=== PATIENT | female | born 1945 | race Caucasian/White ===

== ENCOUNTER 2018-10-05 17:01 | Inpatient (IN) ==
[2018-10-05] MEDS ORDERED: CARDIZEM IV ONE (18:03)
--- NOTE | 2018-10-05 18:20 | Diag Imaging Result Doc PS360 ---
EXAM: CHEST-2 VIEWS INDICATION: heart palpitation TECHNIQUE: 2 views COMPARISON: 02/07/2016 FINDINGS: There is stable mild elevation of the right hemidiaphragm. There is evidence of prior granulomatous disease, stable. The lungs are grossly clear. There is no discrete pleural fluid collection or pneumothorax. The cardiomediastinal silhouette and central vasculature are grossly unremarkable. There is thoracic spondylosis that is essentially stable. There are metallic clips projecting over the right chest wall. IMPRESSION: No evidence of acute pathology by plain radiograph. Electronically signed by Francisco Jurado 10/05/2018 6:17 PM
[2018-10-05 18:23] LABS: BASO# 0.09 X1000 (0.0-0.2); EOS# 0.58 X1000 (0.0-0.7); EOS% 6.6 % (0.0-10.0); HEMOGLOBIN 13.8 g/dL (12.0-16.0); IMM GRAN# 0.02 X1000 (0.0-0.04); IMM GRAN% 0.2 % (0.0-0.5); LYMPH# 3.08 X1000 (1.2-3.4); LYMPH% 35.2 % (20.5-51.1); MCH 29.5 PG (27-31); MCHC 33.7 g/dL (33-37); MCV 87.6 FL (81-99); MONO# 0.58 X1000 (0.11-0.59); MONO% 6.6 % (1.7-9.3); MPV 10.9 FL (7.4-10.4); NEUT# 4.39 X1000 (1.4-6.5); NEUT% 50.4 % (42.2-75.2); PLT 210 X1000 (130-400); RBC 4.68 XMIL (4.2-5.4); RDW 13.6 % (11.5-14.5); WBC 8.74 X1000 (4.8-10.8)
[2018-10-05 18:27] LABS: INR 0.91; PTT 29.7 Seconds (22.3-41.8)
[2018-10-05 18:47] LABS: ALBUMIN 4.5 g/dL (3.5-5.0); CALCIUM 9.8 mg/dL (8.8-10.2); CREATININE 1.2 mg/dL (0.5-0.9); POTASSIUM 3.6 mmol/L (3.5-5.1); TOTAL BILIRUBIN 0.28 mg/dL (0.20-1.00); TOTAL PROTEIN 6.8 g/dL (6.3-8.3)
[2018-10-05] MEDS: CARDIZEM 125 MG/D5W 125 MG/125 ML IVPB IV SCH ×2 (19:08→20:46)
--- NOTE | 2018-10-05 19:09 | PROVIDER DOCUMENTATION ---
This chart was entered by Maru Louis Scribe, acting as scribe for Audrey Patel MD. HPI-Cardiac General - General Chief Complaint: Palpitations Stated Complaint: HR UP/DIZZY Time Seen by Provider: 10/05/18 17:42 Source: patient, family (sisters) Allergies/Adverse Reactions: Patient Allergies Allergy/AdvReac Type Severity Reaction Status Date / Time No Known Allergies Allergy Verified 06/20/17 12:35 Home Medications: Home Medication List Medication Instructions Recorded Confirmed Last Taken Type Aspirin 81 mg PO DAILY 06/20/17 10/05/18 06/20/17 History BENAZEpril [Lotensin] 20 mg PO DAILY 06/20/17 10/05/18 06/27/17 History Colchicine [Colcrys] 0.6 mg PO PRN PRN 06/20/17 10/05/18 Unknown History Diclofenac Sodium 2 tab PO DAILY PRN 06/20/17 10/05/18 06/20/17 History Magnesium Oxide [Magnesium] 400 mg PO DAILY 06/20/17 10/05/18 06/27/17 History Calcium Carbonate [Caltrate 600] 2 tab PO DAILY 10/05/18 10/05/18 Unknown Hi story Choleste Rice 2 tab PO DAILY 10/05/18 10/05/18 Unknown History Denosumab [Prolia] 1 dose SUBQ DIRECTED 10/05/18 10/05/18 Unknown History Joseph Red 800 mg PO DAILY 10/05/18 10/05/18 Unknown History Omeprazole/Sodium Bicarbonate 20 mg PO DAILY 10/05/18 10/05/18 Unknown History [Zegerid 20 mg] - History of Present Illness-Cardiac Nature of Presenting Problem: 73 yowf presents to the ed with c/o new onset afib with dizziness and nausea. pt sts acute onset at 1600 while working in her mothers (mother 2 months prior) carlos. sister that is a nurse was with pt and advised pt to come to ed due to irregular HR. pt checked vitals with onset and got a BP 105/55 HR 156. on exam nausea has resolved and pt still has HR 168 and BP has improved at 138/95 Location: reports: other (denies pain just palpitations) Severity in ED: moderate Onset/Duration: this afternoon (1600) Timing: still present, constant Context/Activities at Onset: reports: moderate activity, recent emotional stress (mother passed 2 months prior) Modifying Factors: improves with: nothing Palpitation Quality: irregular History of arrythmia: reports: none Recent use of:: reports: caffeine Nitro Today/Relief: reports: no nitro taken today Aspirin Treatment Today: reports: no aspirin today Prior Chest Pain/Cardiac Workup: reports: no prior cardiac workup Associated Symptoms: reports: dizziness, nausea. denies: abdominal pain, back pain, diaphoresis, fatigue, fever/chills, headache, heartburn, shortness of breath, vomiting Similar Symptoms Previously?: No Recently Seen Here or By Another Healthcare Provider: No Review of Systems - Adult - REVIEW OF SYSTEMS - ADULT Constitutional: denies: chills, fever Eyes: reports: no symptoms reported Ears, Nose, Mouth & Throat: reports: no symptoms reported Cardiovascular: reports: irregular heart rate, palpitations. denies: chest pain, syncope Respiratory: denies: cough, shortness of breath, wheezing Gastrointestinal: reports: nausea. denies: abdominal pain, diarrhea, vomiting Genitourinary: reports: no symptoms reported Musculoskeletal: denies: back pain, neck pain Integumentary: reports: no symptoms reported Neurological: reports: see HPI, dizziness/vertigo. denies: headache/migraines, loss of balance, numbness, paresthesia, seizure, slurred speech, syncope, tremors Psychiatric: reports: no symptoms reported Endocrine: reports: no symptoms reported Hematologic/Lymphatic: reports: no symptoms reported Allergic/Immunologic: reports: no symptoms reported All Other Systems: Reviewed and Negative Past History - Adult - PAST MEDICAL HISTORY-ADULT Review of Records: reports: Nursing Assessment Review, Medications Reviewed Major Childhood Illnesses: reports: denies history Cardiovascular: reports: HTN, hyperlipidemia Respiratory: reports: denies history Gastrointestinal: reports: GERD Obstetrical/Gynecological: reports: denies history Genitourinary: reports: kidney stones Musculoskeletal: reports: chronic pain, orthopedic injury, osteoporosis Hand Dominance: Right Handed Neurological: reports: denies history Endocrine/Immune: reports: denies history Other Conditions: reports: other cancer (breast) - PRIOR SURGERIES/PROCEDURES Surgical/Procedure History: reports: appendectomy, hysterectomy, tonsillectomy, breast, back/neck - IMMUNIZATION STATUS Childhood Immunizations: See Nurse Assessment Flu Vaccine: See Nurse Assessment - FAMILY HISTORY Family History: reviewed, not pertinent - SOCIAL HISTORY Smoking: non-smoker Substance Use: alcohol Alcohol Use Frequency: occasionally Number of drinks per typical drinking period:: 2 drinks Living Situation: family Physical Exam-General - PHYSICAL EXAM-ADULT Initial Vital Signs Reviewed: Yes - CONSTITUTIONAL General Appearance: appears well, alert, no apparent distress, obese - EYES Eyes: PERRL/EOMI, pink conjunctivae - HEAD, EARS, NOSE, MOUTH & THROAT HENMT: normocephalic/atraumatic, moist mucous membranes, normal ENT inspection - NECK Neck: non-tender, full range of motion, supple, normal inspection - RESPIRATORY Respiratory: chest non-tender, lungs clear, normal breath sounds - CARDIOVASCULAR Cardiovascular: normal peripheral pulses, irregularly irregular - GASTROINTESTINAL (ABDOMEN) Abdominal Exam: normal bowel sounds, non tender, soft, no organomegaly, no pulsatile mass - LYMPHATIC Lymphatic: no adenopathy - MUSCULOSKELETAL Back Exam: normal inspection, no CVA tenderness, no vertebral tenderness Extremity: normal range of motion, non-tender, normal gait, normal inspection, no pedal edema, no calf tenderness, normal capillary refill, pelvis stable - SKIN Integumentary: normal color, normal turgor, warm/dry - NEUROLOGIC Neurologic: grossly normal, no motor/sensory deficits - PSYCHIATRIC Psych/Mental Status: normal mood/affect, normal thought content, normal thought process, oriented x 3 - HEART Score HEART Score: History: Slightly Suspicious HEART Score: ECG: Non-Specific Repolarization Disturbance/LBBB/PM HEART Score: Age: > or = 65 Years HEART Score: Risk Factors for Atherosclerotic Disease: 1 or 2 Risk Factors HEART Score: Troponin: < or = Normal Limit Total HEART Score:: 4 Progress - PLAN OF CARE/RESULTS Progress/Plan/Lab Results: Vital Signs - 8 hr 10/05/18 17:15 Temperature 97.2 F L Pulse Rate 158 H Respiratory Rate 18 Blood Pressure 172/81 O2 Sat by Pulse Oximetry 97 Laboratory Results - last 24 hr 10/05/18 10/05/18 10/05/18 17:48 17:48 17:48 WBC 8.74 RBC 4.68 Hgb 13.8 Hct 41.0 MCV 87.6 MCH 29.5 MCHC 33.7 RDW Std Deviation 13.6 Plt Count 210 MPV 10.9 H Immature Gran % (Auto) 0.2 Neut % (Auto) 50.4 Lymph % (Auto) 35.2 [place] % (Auto) 6.6 Eos % (Auto) 6.6 Baso % (Auto) 1.0 H Immature Gran # (Auto) 0.02 Neut # (Auto) 4.39 Lymph # (Auto) 3.08 [place] # (Auto) 0.58 Eos # (Auto) 0.58 Baso # (Auto) 0.09 PT INR PTT (Actin FS) Sodium 138 Potassium 3.6 Chloride 104 Carbon Dioxide 22 L Anion Gap 12 BUN 23 H Creatinine 1.2 H Estimated GFR/1.73 m2 44 BUN/Creatinine Ratio 19 Glucose 141 H Calculated Osmolality 282 Calcium 9.8 Total Bilirubin 0.28 AST 21 ALT 20 Alkaline Phosphatase 80 Creatine Kinase 95 Troponin T Total Protein 6.8 Albumin 4.5 Globulin 2.3 Albumin/Globulin Ratio 2.0 TSH 3.25 10/05/18 10/05/18 17:48 17:48 WBC RBC Hgb Hct MCV MCH MCHC RDW Std Deviation Plt Count MPV Immature Gran % (Auto) Neut % (Auto) Lymph % (Auto) [place] % (Auto) Eos % (Auto) Baso % (Auto) Immature Gran # (Auto) Neut # (Auto) Lymph # (Auto) [place] # (Auto) Eos # (Auto) Baso # (Auto) PT 13.0 INR 0.91 PTT (Actin FS) 29.7 Sodium Potassium Chloride Carbon Dioxide Anion Gap BUN Creatinine Estimated GFR/1.73 m2 BUN/Creatinine Ratio Glucose Calculated Osmolality Calcium Total Bilirubin AST ALT Alkaline Phosphatase Creatine Kinase Troponin T < 0.010 Total Protein Albumin Globulin Albumin/Globulin Ratio TSH Orders Category Date Time Status Cardiac Monitoring DIRECTED Care 10/05/18 18:03 Active Oxygen Therapy- ED Nursing DIRECTED Care 10/05/18 18:03 Active Saline Loc NOW Care 10/05/18 18:03 Active CHEST-2 VIEWS [RAD] Stat Exams 10/05/18 18:03 Completed CBC WITH DIFF [HEME] Stat Lab 10/05/18 17:48 Completed CK PROFILE [SP CHEM] Stat Lab 10/05/18 17:48 Completed COMPREHENSIVE METABOLIC PANEL [CHEM] Stat Lab 10/05/18 17:48 Completed PRO B-NATRIURETIC PEPTIDE Stat Lab 10/05/18 17:48 Received PROTIME WITH INR [COAG] Stat Lab 10/05/18 17:48 Completed PTT [COAG] Stat Lab 10/05/18 17:48 Completed TROPONIN T Stat Lab 10/05/18 17:48 Completed TSH Stat Lab 10/05/18 17:48 Completed Diltiazem 125 mg/D5w [Cardizem 125 mg/D5w] Med 10/05/18 18:45 Active 125 mg in 125 ml IV As Directed mls/hr Diltiazem [Cardizem] Med 10/05/18 18:03 Discontinued 20 mg IV NOW ONE CP/SOB/Palp >45 yrs of Age Stat Oth 10/05/18 18:03 Ordered EKG [EKG] Stat Ther 10/05/18 17:19 Ordered Result Diagrams: 10/05/18 17:48 10/05/18 17:48 - REASSESSMENT Reassessment #1 Time Reassessed: 18:09 (HR 162) Status: unchanged Reassessment #2 Time Reassessed: 18:32 (HR 108) Status: improving - EKG 1 Time of EKG reading by physician:: 17:20 EKG Read and Signed by:: Audrey Patel EKG Interpretation (*Must complete 3 of following elements*): Abnormal Rate: 165 Rhythm: undetermined rhythm [place]: normal QRS: RBB ME Interval: normal ST Wave: normal - XRAY 1 XRAY: Bilateral XRAY Study: Chest Impression: See EMR Report (EXAM: CHEST-2 VIEWS INDICATION: heart palpitation TECHNIQUE: 2 views COMPARISON: 02/07/2016 FINDINGS: There is stable mild elevation of the right hemidiaphragm. There is evidence of prior granulomatous disease, stable. The lungs are grossly clear. There is no discrete pleural fluid collection or pneumothorax. The cardiomediastinal silhouette and central vasculature are grossly unremarkable. There is thoracic spondylosis that is essentially stable. There are metallic clips projecting over the right chest wall. IMPRESSION: No evidence of acute pathology by plain radiograph. Electronically signed by Francisco Jurado 10/05/2018 6:17 PM 10/05/181816 Interpreting Physician: Francisco Jurado MD Dictated Date/Time: 10/05/181815 cc: Audrey Patel MD; Gina Cruz) Departure - Departure Date of Disposition Decision: 10/05/18 Time of Disposition Decision: 19:08 DIAGNOSIS: New onset a-fib, HARSHAD (acute kidney injury) Disposition: ADMITTED INPATIENT 09 Certified Medical Emergency: Emergent Condition: Stable Referrals and Follow-Ups: Gina Cruz [Primary Care Provider] - - Critical Care Note This patient required my direct & personal management of CC.: Yes Total Time (mins): 38 Critical Care Statement: This patient required my direct personal management to treat or rule out processes, the absence of which, could potentiallly result in sudden, clinically significant life or limb threatening deterioration. Comments: new onset afib Attestation - Physician/ VERONIKA Attestation Patient care was provided by Advanced Practice Provider:: No The physician spent face to face time with patient:: Yes Advanced Practice Provider documentation review:: Supervising physician onsite and consulted in the evaluation and care of this patient. The physician did have a face to face encounter with the patient. This chart was documented by the indicated scribe, (Maru Louis Scribe) and accurately reflects the services I performed and decisions made by me, Audrey Patel MD, as attested by the provider's signature.
[2018-10-05] MEDS ORDERED: LANOXIN IV ONE (19:55)
[2018-10-05] MEDS ORDERED: NS 500 ML IV ONE (20:18)
--- NOTE | 2018-10-05 21:15 | HISTORY AND PHYSICAL ---
Patient of Dr. Gina Cruz. REASON FOR ADMISSION: Dizziness and palpitations. Ms. Dee Dee Fernandez is 73-year-old lady with past medical history of breast cancer, hypertension, reflux disease and gout. Says she was doing well up until today when while working to clean up mother's garage she had a very funny fluttering feeling with simultaneous lightheadedness. Initially she thought her blood pressure was high and then she took her blood pressure was 105/55 but noted the heart rate was in the 140s. Recheck was done by a sister who is a nurse and heart rate was consistently in the 140s. She came into the ER on account of this. She denies any antecedent chest pain or shortness of breath. No extremity redness or swelling. No pedal edema. No PND or orthopnea. No cough, fever, chills. She was recently treated with an antibiotic yesterday for presumed ear infection and given a nasal spray and cough syrup which she has not used the latter 2. She denies any other new medications, no hot flashes, no tremors, fever or chills, GI or complaints, no focal neurological complaints. No arthralgia or rash. REVIEW OF SYSTEMS: Twelve system review was done. Positive findings per HPI. ALLERGIES: None. HOME MEDICATIONS: She is on a baby aspirin once a day, is on colchicine 0.6 mg p.r.n., diclofenac 75 mg daily, Lotensin 20 mg daily, Mag oxide 400 mg daily, she takes Prolia subcu every 6 months and she is on is on Zegerid 20 mg daily, calcium carbonate, 1200 mg daily and cholesterol rice 2 mg daily. FAMILY HISTORY: Notable for hypothyroidism, coronary artery disease, CKD, prostate cancer, bladder cancer in 1st degree relatives. SOCIAL HISTORY: Does not smoke, drink or use illicit drugs. SURGICAL HISTORY: Mastectomy, hysterectomy, back surgery. LABORATORY WORK: White count 8000, hemoglobin and hematocrit 13 and 41, platelets 210,00, normal differential. Potassium 3.6, BUN 23, creatinine 1.2, glucose is 141, troponins negative, TSH normal, PTT is normal, chest film no acute cardiothoracic abnormal findings noted. EKG showed atrial fibrillation with rapid ventricular rate in the 140s and nonspecific ST-wave changes noted. PHYSICAL EXAMINATION: Blood pressure is currently 140/91, heart rate 140, temperature is 97.2 degrees, respirations 19, 97% on room air. Elderly woman who appears younger than stated age. She is alert and oriented to person, time with normal mood and affect. HEENT: Head is normocephalic, atraumatic. HAROON, EOMI, she is anicteric, not pale. ENT exam is grossly normal. NECK: Supple. No JVD or carotid bruit, no thyromegaly. CHEST: Clear when auscultated with good air entry both lung [place]. CARDIOVASCULAR: 1st, 2nd heart sounds heard. No gallops, rubs, regular . ABDOMEN: Protuberant soft no tenderness, on organmegaly, bowel sounds hypoactive EXTREMITY: No thickened cords in extremity, no swelling and pulses distally have good volume but irregularly regular with symmetrical. No clubbing or peripheral cyanosis. NEURO: No gross focal deficits, no tremors. SKIN: Intact, no breakdown, lesion skin. MUSCULAR: Grossly normal. ASSESSMENT THIS TIME: 1. Atrial fibrillation, rapid ventricular rate. 2. Hypertension. 3. Gout. 4. Reflux disease. PLAN: Patient will be admitted and already been started on Cardizem drip. I am going to add on digoxin and low-dose beta blockers. If patient's rate fails to come down below 100, after 48 hours it is very likely on Sunday she may undergo cardioversion. I have taken the liberty of starting patient on Eliquis in anticipation for this and because her CHADS score requires that she got anticoagulation because barring any contraindication which she does not have any. Will start the patient on some fluids based on her mild elevated creatinine see this helps bring the heart rate down. Cautious use of any other antihypertensives because her blood pressure is borderline normotensive. Cardiology has been consulted, echocardiogram has also been ordered. cc: Gina SÁNCHEZ
[2018-10-06] MEDS ORDERED: LOPRESSOR PO ONE (03:09)
[2018-10-06] MEDS ORDERED: TYLENOL PO PRN (03:09)
[2018-10-06] MEDS ORDERED: COLCRYS PO PRN (03:09)
[2018-10-06] MEDS ORDERED: ZOFRAN IV PRN (03:09)
[2018-10-06] MEDS: LANOXIN IV SCH ×2 (03:41→06:48)
[2018-10-06] MEDS: ELIQUIS PO SCH ×2 (03:47→08:45)
[2018-10-06 04:49] LABS: BASO# 0.08 X1000 (0.0-0.2); EOS# 0.45 X1000 (0.0-0.7); EOS% 5.3 % (0.0-10.0); HEMATOCRIT 40.2 % (37.0-47.0); HEMOGLOBIN 13.5 g/dL (12.0-16.0); IMM GRAN# 0.03 X1000 (0.0-0.04); IMM GRAN% 0.4 % (0.0-0.5); LYMPH# 2.58 X1000 (1.2-3.4); LYMPH% 30.6 % (20.5-51.1); MCHC 33.6 g/dL (33-37); MCV 89.3 FL (81-99); MONO# 0.57 X1000 (0.11-0.59); MONO% 6.8 % (1.7-9.3); MPV 10.7 FL (7.4-10.4); NEUT# 4.71 X1000 (1.4-6.5); NEUT% 55.9 % (42.2-75.2); PLT 187 X1000 (130-400); RDW 13.8 % (11.5-14.5); WBC 8.42 X1000 (4.8-10.8)
[2018-10-06] MEDS: CARDIZEM 125 MG/D5W 125 MG/125 ML IVPB IV SCH (05:00)
[2018-10-06 05:11] LABS: CALCIUM 9.4 mg/dL (8.8-10.2); CREATININE 1.1 mg/dL (0.5-0.9); MAGNESIUM 1.7 mg/dL (1.5-2.7); POTASSIUM 3.8 mmol/L (3.5-5.1)
[2018-10-06] MEDS ORDERED: LOTENSIN PO SCH (09:00)
[2018-10-06] MEDS ORDERED: ZEGERID 20 MG PO SCH (09:00)
[2018-10-06] MEDS ORDERED: PRILOSEC PO SCH (09:00)
[2018-10-06] MEDS ORDERED: LOPRESSOR PO SCH (09:00)
[2018-10-06] MEDS ORDERED: MAG-OX PO SCH (09:00)
--- NOTE | 2018-10-06 14:09 | CONSULTATION ---
DATE OF CONSULTATION: 10/06/2018 IMPRESSION: 1. Episode of atrial fibrillation with rapid ventricular rate. Patient has spontaneously converted back to sinus rhythm. She has no previous history of atrial fibrillation. 2. Hypertension. 3. Breast cancer. 4. Gastroesophageal reflux disease. RECOMMENDATIONS: 1. Continue aspirin p.o. daily. 2. Followup echocardiography. 3. If echocardiography demonstrates benign findings, it is reasonable for her to be discharged to home to have followup with cardiology in 3 weeks. 4. Should she have further episodes of atrial fibrillation, consider anticoagulation with Eliquis and further management. HISTORY: This 73-year-old, white female with a past history of breast cancer, hypertension, gastroesophageal reflux, and gout was admitted yesterday evening with atrial fibrillation and rapid ventricular rate. Her mother recently , and she and her sister were cleaning up her mother's garage yesterday afternoon. During this activity, she started feeling mild palpitations and some lightheadedness. She checked her blood pressure and noted tachycardia. Her sister is a nurse. Her heart rate was consistently in the 140s. She came to the emergency room and was found to be in atrial fibrillation with a rapid ventricular rate. There was no chest discomfort or shortness of breath. There has been no syncope. She was started on intravenous Cardizem as well as Eliquis. Overnight, she converted back to sinus rhythm. She has no prior history of atrial fibrillation or palpitations. PAST MEDICAL HISTORY: 1. Hypertension. 2. Breast cancer. Patient is status post previous mastectomy. 3. Gout. 4. Gastroesophageal reflux disease. PAST SURGICAL HISTORY: Includes mastectomy, hysterectomy, and unspecified back surgery. ALLERGIES: She has no known drug allergies. MEDICATIONS PRIOR TO ADMISSION: As listed. SOCIAL HISTORY: She does not smoke. She drinks a rare alcoholic beverage. FAMILY HISTORY: Negative for premature coronary artery disease. REVIEW OF SYSTEMS: Pulmonary: Negative. Gastrointestinal: Negative. Constitutional: Negative. Remainder of the review of systems negative/noncontributory with 14 total systems reviewed. PHYSICAL EXAMINATION: General: This is a pleasant, older, white female in no distress. Vital Signs: Blood pressure 123/89, heart rate 64 and regular, with ECG monitor showing sinus rhythm. Oxygen saturation 97% on room air. HEENT Examination: Extraocular movements appear intact. Mucous membranes are moist. Neck: Supple, without jugular venous distention. There are no carotid bruits. Chest: Clear to auscultation. Cardiac: Examination reveals a regular rate and rhythm without appreciable murmur or gallop. There is no evidence of peripheral edema. Neurologic: Examination reveals her to be alert and fully oriented. Speech is fluent. She moves all 4 extremities equally well. Skin: Warm and dry. Psychiatric: Examination reveals her mood to be appropriate. DIAGNOSTIC DATA: ECG on presentation demonstrates atrial fibrillation with rapid ventricular rate. Current ECG monitor shows sinus rhythm. LABORATORY DATA: Includes a white blood cell count of 8.42, hematocrit 40.2, hemoglobin 13.5, platelet count 187,000. Sodium 144, potassium 3.8, chloride 109, carbon dioxide 23, BUN 19, creatinine 1.1. Magnesium 1.7. Initial troponin less than 0.01, followup troponin less than 0.01, CPK 95, followup CPK 61. TSH 3.25. cc: Cipriano Banda MD
[2018-10-06 18:10] VITALS: BP 148/79
--- NOTE | 2018-10-06 21:49 | ECHO REPORT ---
ORDER DATE: 10/06/2018 MEASUREMENTS: Left ventricular end-diastolic 3.7, end-systolic diameter 2.8, septal thickness 1.9, posterior wall thickness 1.0, aortic root 3.0, left atrium 3.8. SUMMARY: 1. Adequate quality study. 2. Aortic valve is trileaflet and opens normally on 2-dimensional images. Peak gradient across aortic valve was less than 10 mmHg. Mitral, tricuspid, and pulmonic valves are without evidence of structural abnormality with trace mitral regurgitation, mild tricuspid regurgitation, and very mild pulmonic insufficiency. Estimated systolic PA pressure by Doppler is 30 mmHg. Aortic root is normal in size. 3. Normal left ventricular dimensions demonstrated. Estimated left ejection fraction appears to be approximately 55%. No regional wall motion abnormalities are evident. Doppler suggests grade 1 left ventricular diastolic dysfunction. The left atrium, right atrium, and right ventricle are normal size with grossly preserved right ventricular systolic function. 4. No pericardial effusion. 5. Appearance of inferior vena cava suggests normal central venous pressure. cc: Cipriano Banda MD
--- NOTE | 2018-10-07 08:05 | EKG Report ---
Test Performed on : 10/06/2018 06:25:41 AM Test Reason : afib follow up Blood Pressure : / mmHG Vent. Rate : 067 BPM Atrial Rate : 067 BPM P-R Int : 158 ms QRS Dur : 116 ms QT Int : 434 ms P-R-T Axes : 048 049 050 degrees QTc Int : 458 ms Sinus rhythm. with fusion complexes Right bundle branch block Abnormal ECG When compared with ECG of 05-OCT-2018 17:20, (Unconfirmed) Previous ECG has undetermined rhythm, needs review ST no longer depressed in Anterior leads Confirmed by Ernie PALMA, Kendrick ([id number]) on 10/07/2018 9:17:47 AM
--- NOTE | 2018-10-07 08:37 | EKG Report ---
Test Performed on : 10/05/2018 5:20:12 PM Test Reason : increased HR Blood Pressure : / mmHG Vent. Rate : 165 BPM Atrial Rate : 178 BPM P-R Int : 000 ms QRS Dur : 110 ms QT Int : 310 ms P-R-T Axes : 000 025 017 degrees QTc Int : 513 ms Undetermined rhythm Right bundle branch block Abnormal ECG When compared with ECG of 20-JUN-2017 12:52, Current undetermined rhythm precludes rhythm comparison, needs review ST now depressed in Anterior leads Unconfirmed Result
[2018-10-07] MEDS ORDERED: ASPIRIN PO SCH (09:00)
--- NOTE | 2018-10-13 21:03 | DISCHARGE SUMMARY ---
ADMISSION DATE: 10/05/2018 DISCHARGE DATE: 10/06/2018 DISCHARGE DIAGNOSIS: 1. Atrial fibrillation with rapid ventricular response. 2. Hypertension. Briefly patient came in with elevated heart rate in the 140s. No other symptoms. I think this was a new diagnosis for her. She had been placed on a Cardizem drip. She was placed on digoxin, low-dose beta blockers and initially the plan was to have her undergo cardioversion but I think she spontaneously converted. She was placed on Eliquis based on BLOSSOM score. The following day echocardiogram showed an EF of 55%, grade [address] Banda was consulted on the patient and recommended aspirin, echocardiogram and felt they could go home and then there was consideration for Eliquis, in any case patient was discharged, her echocardiogram looked okay and follow up with her PCP. She was placed on metoprolol 25 daily, aspirin, Lotensin 20 daily, colchicine 0.6 as needed, diclofenac, calcium, Prolia, Prilosec although I think she probably she did qualify for eliquis and I discussed the case with Dr. Banda initially, I felt he said aspirin alone although his note states that if she has further episodes of atrial fibrillation they would consider Eliquis and make sure she follows up closely with him. Follow up with Dr. Banda so based on her criteria she is 73, she is female and she has hypertension so she has got a CHADS score of at least 3 so I would strongly consider Eliquis and recommend stopping her aspirin. cc: Alton Terrazas MD [email or web address]
== END 2018-10-06 18:50 | disposition home or self-care (01) | DRG 310 ==
LOC: ED 17:01 → SUATTDRO 23:03 → ICU 23:03
PROVIDERS: ATTEND Internal Medicine
CPT/HCPCS: 71020; 71046; 80048; 80053; 82550; 83735; 83880; 84443; 84484; 85025; 85610; 85730; 93005; 93010; 93306; 96365; 96366; 96375; 99285; A9270; J1160; J7040